=== PATIENT | female | born 1985 | race African-American/Black ===

== ENCOUNTER 2020-11-07 15:29 | Emergency (ER) | payer BC, OTHER ==
[~2020-11-07] VITALS: Ht 172.7 cm; Wt 72.6 kg
[2020-11-07 16:15] LABS: CLARITY,URINE HAZY (CLEAR); COLOR,URINE YELLOW (YELLOW); KETONES,URINE NEGATIVE (NEGATIVE); LEUKOCYTE ESTERASE ,URINE NEGATIVE (NEGATIVE); NITRITE,URINE NEGATIVE (NEGATIVE); PROTEIN,URINE DIPSTICK NEGATIVE (NEGATIVE); URINE UROBILINOGEN 0.2 mg/dL (0.2 - 1)
[2020-11-07 16:25] LABS: BACTERIA,URINE MODERATE /HPF; EPITHELIAL CELLS,URINE MANY /LPF
[2020-11-07] MEDS ORDERED: CIPRO500 MG PO (16:48)
[2020-11-07 16:52] VITALS: BP 126/62
== END 2020-11-07 16:53 | disposition home or self-care (01) ==
LOC: ER 15:36
DX: O03.9 Complete or unspecified spontaneous abortion without complication (principal)
CPT/HCPCS: 76817; 81001; 99283